=== PATIENT | male | born 1980 | race Caucasian/White ===

== ENCOUNTER 2024-02-14 19:06 | Emergency (ER) | payer BC, SELFPAY ==
[2024-02-14 19:10] VITALS: BP 151/87
[2024-02-14 19:33] VITALS: BMI 33.3
[2024-02-14] MEDS: PROTONIX IV 40 MG IV (19:47)
[2024-02-14] MEDS: NSS 1000 IV (19:47)
--- NOTE | 2024-02-14 19:47 | ED.GENMED ---
History of Present Illness
General
Chief Complaint: Abdominal Pain
Source: patient
Exam Limitations: none
Time Seen by Provider: 02/14/24 19:15
History of Present Illness
History of Present Illness:
This is a 43 year old male that comes in with c/o abd pain. States that he went to see the PCP today and they sent him to the ER. States that he has had abd pain for the past 2.5 days. States that the pain is across the upper abd and the left side.
States that he has had some chest discomfort that comes and goes with SOB, occasional headache and dizziness if he gets up fast. denies any fever, chills, nausea, vomiting, diarrhea, no headache now, urinary burning.
Past History
Past History
ED Past Medical History: GERD and Other (Psoriasis)
ED Past Surgical History: None
Social History
Tobacco: Former smoker
Alcohol: None
Personal:
Living: with family
Employment: Employed
Review of Systems
Review of Systems
All Other Systems: ROS reviewed and negative except as documented in HPI and ROS
Constitutional: Reports no symptoms; Denies fever or chills
EENT: Reports no symptoms
Respiratory: Reports trouble breathing; Denies cough
Cardiac: Reports chest pain (comes and goes)
ABD/GI: Reports abdominal pain; Denies nausea, vomiting or diarrhea
: Reports no symptoms; Denies dysuria, frequency or urgency
Musculoskeletal: Reports no symptoms
Skin: Reports no symptoms
Neurological: Reports dizzy (getting up fast) and headache (occasional)
Psychiatric: Reports no symptoms
Phy Exam
General Physical Exam
General Presentation: no apparent distress
General age: appears stated age
General Skin: warm and dry
General Habitus: normal
General Mental: alert
General Hydration: appears well hydrated
ENT Exam
ENT Exam: TM's normal, pharynx normal and neck supple
Eye Exam
Eye Exam: EOMI
Cardiovascular Exam
Cardiovascular Exam: regular rate/rhythm, no edema, no murmur and normal peripheral pulses
Pulmonary Exam
Pulmonary Exam: lungs clear, no respiratory distress, no rales, chest non tender, no crackles, no rhonchi, no wheezing and no cough
Gastrointestinal Exam
Gastrointestinal Exam: normal bowel sounds, soft, no organomegaly, no pulsatile mass, non distended and tender (Left sided tenderness and epigastric tenderness with palpation)
Musculoskeletal Exam
Musculoskeletal Exam: full ROM and no edema
Skin Exam
Skin Exam: normal color, warm/dry, no rash and no petechia
Psychiatric Exam
Psychiatric Exam: normal mood/affect
Course
Orders/Labs/Results
Orders:
Orders
02/14/24 19:06
Electrocardiogram (*1) Urgent
Reason for Study: Shortness of Breath
02/14/24 19:07
EKG- Treatment ONCE
02/14/24 19:26
0.9% Sodium Chloride 1000 ml [Nss] 1,000 ml IV BOLUS
Pantoprazole [Protonix IV] 40 mg IV NOW STA
02/14/24 19:27
CT Abd/pelvis W Iv Cont Urgent
Comment:
Reason For Exam: left sided and upper abd pain
CR Chest - 2 Views Urgent
Comment:
Reason For Exam: SOB, abd pain
02/14/24 19:44
COVID-19 Antigen Urgent
Source: Nasal Swab
Complete Blood Count/With Diff Urgent
Comprehensive Metabolic Panel Urgent
Lipase Urgent
Troponin I Urgent
02/14/24 19:52
Ketorolac [Toradol] 30 mg IV NOW STA
Abnormal Lab Results
02/14/24
19:44
RBC 4.51 L 10^6/uL
(4.70-6.10)
MCH 31.7 H pg
(27.0-31.0)
Absolute Neuts (auto) 7.6 H 10^3/uL
(1.4-6.5)
Absolute Monos (auto) 1.1 H 10^3/uL
(0.1-0.6)
Lymphocytes % 16.3 L %
(20.5-51.1)
Monocytes % 10.1 H %
(1.7-9.3)
Carbon Dioxide 21 L mmol/L
(22-30)
Glucose 105 H mg/dl
(70-99)
02/14/24 19:44
02/14/24 19:44
glucose nonfasting. Carbon dioxide slightly low. Troponin <0.012, Lipase normal at 190, COVID negative.
Vital Signs
Initial and Last Documented VS:
Initial Vital Signs
Temp Pulse Resp BP Pulse Ox
98.2 F 103 15 151/87 96
02/14/24 19:10 02/14/24 19:10 02/14/24 19:10 02/14/24 19:10 02/14/24 19:10
Last Documented Vital Signs
Temp Pulse Resp BP Pulse Ox
98.2 F 99 22 128/84 97
02/14/24 19:10 02/14/24 20:15 02/14/24 20:15 02/14/24 20:00 02/14/24 20:15
MDM/Problems Addressed
Differential Diagnosis Includes:
Diverticulitis, gastritis,
MDM/Problems Addressed:
This is a 43 year old male that comes in with c/o abd pain that started 2.5 days ago. States that the pain is on the left side and goes around to the back and across the upper abd.
will check labs, CT scan, IV fluids and pain medication.
Back into see patient. Explained that his blood work is normal and his CT shows a fatty liver. Otherwise no inflammatory process. COVID is negative and Troponin is normal. Patient to increase his Protonix to BID for [address] patient
on Carafate for 10 days. Patient to follow up with the family doctor. Patient to stay on a bland diet. Return with fever, increased or changing pain, or any other concerns.
Chronic conditions affecting care:
GERD
Acute Exacerbation and/or Progression of Chronic Illness:
GERD
*Radiology
Radiology exam reviewed: radiology read reviewed (Chest-Normal CT abd/pelvis-Hepatomegaly with diffuse fatty infiltration of the liver. )
*Pulse Oximetry
Patient hypoxic: no
*EKG
Interpreted by ED Provider?: Yes
Heart Rate: 102
Rate: tachycardiac
Rhythm: sinus tachycardia
[place]: normal axis
Interval: normal interval
QRS Pattern: normal QRS
Ischemia: no ischemia
*Automation Tech Interpretation
Rate: tachycardiac
Heart Rate: 102
Rhythm: sinus tachycardia
*Critical Care Note
Total Time (30-74mins, 75-104mins- exclusive of procedures): Not Applicable
ED Attending Note
-
Portions of this chart may have been created with voice recognition software.� Occasional wrong word or��sound alike� substitutions may have occurred due to the inherent limitations of voice recognition software.
Discharge Plan
Departure
Patient Disposition: Home (Routine Discharge)
Date of Disposition: 02/14/24
Time of Disposition: 21:55
Patient with high blood pressure during this ER visit?: Yes
Condition: Good
Covid-19: Not Applicable
Discharge Problem:
Abdominal pain, Gastritis
Instructions: Gastritis (DC), Abdominal Pain, BLOOD PRESSURE
Prescriptions:
New
sucralfate [Carafate] 1 gram tablet
1 g PO ACHS Qty: 40 0RF
Rx Instructions:
Dissolve in 2tsp of water. 30min-1 hour before meals and Bedtime
No Action
cephalexin 500 MG capsule
500 mg PO QID Qty: 28 0RF
Referrals:
Gurmeet Borden MD [Family Provider] - Call in 1-3 days for appt
Activity Restrictions/Additional Instructions:
As discussed, your blood work is normal. Your CT shows that you have a fatty liver but there is no other acute inflammatory findings. You are negative for COVID. This may be a gastritis. Please use your Protonix twice daily for 10 days. You have
also had a prescription sent to your Pharmacy for Carafate. Please dissolve this is 2 tsp of water and drink 30min to 1 hour before each meal and at bedtime. Please try and bland diet. Chicken, rice and potatoes are easily digested. Follow up with
the family doctor for recheck. IF YOU HAVE FEVER, INCREASED OR CHANGING PAIN, OR YOU HAVE ANY OTHER CONCERNS PLEASE RETURN TO THE EMERGENCY ROOM.
Interventions
Interventions:
*Risk Screen - Suicide Last Done: 02/14/24 19:10
*General Assessment Last Done: 02/14/24 19:10
*Neglect/Abuse Screening Last Done: 02/14/24 19:10
*ED COVID-19 Vaccine History Last Done: 02/14/24 19:33
YZ-[id number]-[id number] Assessment Last Done: 02/14/24 19:33
Discharge Date and Time
Print Language: MONGOLIAN
[2024-02-14 19:49] VITALS: BP 131/82
[2024-02-14 19:50] LABS: % Basophils 0.4 % (0-2); % Immature Granulocytes 0.4 % (0-0.5); % Lymphocytes 16.3 % (20.5-51.1); % Monocytes 10.1 % (1.7-9.3); % Neutrophils 71.8 % (42.2-75.2); Absolute Eosinophils 0.1 10^3/uL (0-0.7); Absolute Lymphocytes 1.7 10^3/uL (1.2-3.4); Absolute Monocytes 1.1 10^3/uL (0.1-0.6); Absolute Neutrophils 7.6 10^3/uL (1.4-6.5); Hematocrit 39.5 % (39.0-52.0); Hemoglobin 14.3 g/dL (13.0-18.0); Mean Corp Hgb Conc. 36.2 g/dL (33.0-37.0); Mean Corpuscular Hgb 31.7 pg (27.0-31.0); Mean Corpuscular Volume 87.6 fL (80.0-94.0); Mean Platelet Volume 9.2 fL (7.4-10.4); Nucleated Red Blood Cells % 0 % (-); Platelet Count 242 10^3/uL (130-400); Red Blood Cell Count 4.51 10^6/uL (4.70-6.10); Red Cell Dist. Width 11.7 % (11.5-14.5); White Blood Cell Count 10.5 10^3/uL (4.8-10.8)
[2024-02-14] MEDS: TORADOL 30 MG IV (19:55)
[2024-02-14 20:00] VITALS: BP 128/84
[2024-02-14 20:06] LABS: COVID-19 Antigen Negative (Negative)
[2024-02-14 20:09] LABS: ALT (SGPT) 36 U/L (0-50); AST (SGOT) 31 U/L (17-59); Albumin 4.6 g/dl (3.5-5.0); Alkaline Phosphatase 80 U/L (38-126); Blood Urea Nitrogen 15 mg/dl (9-20); Calcium 9.1 mg/dl (8.4-10.2); Carbon Dioxide 21 mmol/L (22-30); Chloride 102 mmol/L (98-107); Estimated Creatinine Clearance > 125 ml/min; Glucose 105 mg/dl (70-99); Potassium 3.9 mmol/L (3.5-5.1); Sodium 138 mmol/L (135-145); Total Bilirubin 0.7 mg/dl (0.2-1.3); Total Protein 7.5 g/dl (6.3-8.2); eGFR > 60.00
[2024-02-14 20:10] LABS: Lipase 190 U/L (23-300)
[2024-02-14 20:14] LABS: Troponin I < 0.012 ng/ml
[2024-02-14 21:22] VITALS: BP 119/71
== END 2024-02-14 22:09 | disposition home or self-care (01) ==
LOC: EMR 19:06
PROVIDERS: Clinical Nurse Specialist Family Health; EMERGENCY PHYSICIAN Emergency Medicine; FAMILY PHYSICIAN Family Medicine
DX: R10.10 Upper abdominal pain, unspecified (principal); K29.70 Gastritis, unspecified, without bleeding; K21.9 Gastro-esophageal reflux disease without esophagitis; Z87.891 Personal history of nicotine dependence; Z11.52 Encounter for screening for COVID-19
CPT/HCPCS: 99285; 96374; 96375; 96361; 71046; 74177; 80053; 83690; 84484; 85025; 87811; 93005; Q9967